=== PATIENT | female | born 1990 | race Asian ===

== ENCOUNTER 2017-09-24 17:34 | Outpatient (CLI) | payer MEDICAID ==
[~2017-09-24] VITALS: Ht 149.9 cm; Wt 68.2 kg
[~2017-09-24 17:34] MED LIST: ACET-1757 PO; ACET325T26 PO; CIPR500T87 PO; DOCU-131 PO; FERR325T18 PO; HYDR-3240 PO; HYDR25CA PO; IBUP-1222 PO; OXYC-302 PO; PREN1TAB28 PO; SERT50TA PO
[2017-09-24 17:42] VITALS: BP 119/58
[2017-09-24] MEDS ORDERED: PREN1TAB60 PO (18:09)
[2017-09-24 18:33] LABS: MICROSCOPIC NOT IND
== END 2017-09-24 18:58 | disposition home or self-care (01) ==
LOC: LDOP 17:34
PROVIDERS: ATTEND Obstetrics & Gynecology
DX: O42.913 Preterm premature rupture of membranes, unspecified as to length of time between rupture and onset of labor, third trimester (principal); Z3A.36 36 weeks gestation of pregnancy
CPT/HCPCS: 59025; 81003; 89060; 99211; G0463; Q0114